=== PATIENT | female | born 1950 | race Caucasian/White ===

== ENCOUNTER 2023-10-30 07:04 | Day surgery (SDC) | payer OTHER, MEDICAID ==
[~2023-10-30] VITALS: Ht 154.9 cm; Wt 65.3 kg
[2023-10-30] MEDS ORDERED: fentaNYL CITRATE/PF 100 MCG/2 ML AMP ONE (08:26)
[2023-10-30] MEDS ORDERED: MEPERIDINE 100 MG INJ. 100 MG/ML VIAL ONE (08:26)
[2023-10-30] MEDS ORDERED: MIDAZOLAM HCL 5 MG/5 ML VIAL ONE (08:27)
[2023-10-30 09:42] VITALS: O2SAT 96
[2023-10-30 10:15] VITALS: BP_SYST 114; PULSE 80; RESP 23
== END 2023-10-30 10:05 | disposition home or self-care (01) ==
LOC: SDS 07:04 → SMU 07:06 → SDS 10:05
PROVIDERS: ATTEND Student in an Organized Health Care Education/Training Program
DX: K62.5 Hemorrhage of anus and rectum (principal); K29.50 Unspecified chronic gastritis without bleeding; K63.5 Polyp of colon; K64.8 Other hemorrhoids; K21.9 Gastro-esophageal reflux disease without esophagitis; I10 Essential (primary) hypertension; E78.5 Hyperlipidemia, unspecified; Z88.0 Allergy status to penicillin; Z90.49 Acquired absence of other specified parts of digestive tract; Z79.899 Other long term (current) drug therapy
CPT/HCPCS: 45385; 45380; 43239; 99152; 88305; 88312; 88313; 99153; G0378; J2250; J3010; J2175